=== PATIENT | female | born 1985 | race Caucasian/White ===

== ENCOUNTER 2017-04-13 13:42 | Emergency (ER) | payer BC, OTHER ==
[~2017-04-13] VITALS: Ht 157.5 cm; Wt 83.2 kg
[2017-04-13] MEDS ORDERED: TOPA100T12 PO (13:58)
[2017-04-13] MEDS ORDERED: ZOFR4TAB3 PO ×2 (13:58→16:38)
[2017-04-13] MEDS ORDERED: METF750T PO (13:58)
[2017-04-13] MEDS ORDERED: LISI2.5T3 PO (13:58)
[2017-04-13] MEDS ORDERED: LANTINJ4 SC (13:58)
[2017-04-13] MEDS ORDERED: NOVOINJ3 SC (13:58)
[2017-04-13] MEDS ORDERED: atarax (13:58)
[2017-04-13] MEDS ORDERED: LIPI10TA PO (13:58)
[2017-04-13] MEDS ORDERED: PROM50TA4 PO ×2 (13:58→16:38)
[2017-04-13] MEDS ORDERED: LOPR1TAB7 PO (13:58)
[2017-04-13] MEDS ORDERED: PROMETHAZINE INJ 25 MG/ML VIAL (J2550) IV ONE (14:00)
[2017-04-13] MEDS ORDERED: NS 1,000 ML IV ONE (14:00)
[2017-04-13 14:19] LABS: BASO % 0.5 % (0.0-1.0); EOS # 0.1 K/mm3 (0.0-0.50); EOS % 1.5 % (0.0-3.0); LARGE UNSTAINED CELL # 0.1 K/mm3 (0.0-0.4); LYMPH # 2.1 K/mm3 (1.5-4.5); MEAN CORPUSCULAR HEMOGLOBIN 30.1 pg (27.0-33.0); MEAN CORPUSCULAR HGB CONC 33.8 g/dl (32.0-36.5); MEAN CORPUSCULAR VOLUME 89.2 fl (80.0-96.0); MONO # 0.2 K/mm3 (0.0-0.8); MONO % 2.2 % (0.0-5.0); NEUTROPHILS % 69.7 % (36.0-66.0); PLATELET COUNT, AUTOMATED 418 k/mm3 (150-450); RED CELL DISTRIBUTION WIDTH 11.7 % (11.5-14.5); WHITE BLOOD COUNT 8.6 K/mm3 (4.0-10.0)
[2017-04-13 14:33] LABS: CONTROL LINE HCG INT CTR LINE PRESENT
[2017-04-13 14:41] LABS: ALBUMIN 3.9 GM/DL (3.2-5.2); ALBUMIN/GLOBULIN RATIO 0.95 (1.00-1.93); ALKALINE PHOSPHATASE 72 U/L (45-117); ALT/SGPT 33 U/L (12-78); ANION GAP 9 MEQ/L (8-16); AST/SGOT 15 U/L (15-37); BILIRUBIN,DIRECT < 0.1 MG/DL (0.0-0.2); BILIRUBIN,TOTAL 0.3 MG/DL (0.2-1.0); BLOOD UREA NITROGEN 11 MG/DL (7-18); CARBON DIOXIDE LEVEL 24 MEQ/L (21-32); CHLORIDE LEVEL 107 MEQ/L (98-107); CREATININE FOR GFR 0.94 MG/DL (0.55-1.02); GLOMERULAR FILTRATION RATE > 60.0 (>60); GLUCOSE, FASTING 173 MG/DL (70-105); POTASSIUM SERUM 4.3 MEQ/L (3.5-5.1); SODIUM LEVEL 140 MEQ/L (136-145)
--- NOTE | 2017-04-13 15:44 | REP ---
KUB ABDOMEN AND PELVIS: Two KUB films of abdomen and pelvis are performed. Bowel gas pattern is normal. There is no evidence of small bowel obstruction. Multiple phleboliths are seen in the pelvis. IMPRESSION: No evidence of small bowel obstruction. Signed by Rick Jauregui MD 04/13/2017 03:52 P
[2017-04-13 16:37] VITALS: BP 124/82
== END 2017-04-13 16:50 | disposition home or self-care (01) ==
LOC: M ED 13:42 → EDBD 13:42 → M ED 16:50
DX: R11.2 Nausea with vomiting, unspecified (principal); E11.9 Type 2 diabetes mellitus without complications; G43.909 Migraine, unspecified, not intractable, without status migrainosus; R00.0 Tachycardia, unspecified; Z79.4 Long term (current) use of insulin; Z79.899 Other long term (current) drug therapy; Z88.0 Allergy status to penicillin; Z88.5 Allergy status to narcotic agent

== ENCOUNTER → 2017-05-08 | Outpatient (REF) | payer OTHER ==
[~2017-05-08] MED LIST: LANTINJ4 SC; LIPI10TA PO; LISI2.5T3 PO; LOPR1TAB7 PO; METF750T PO; NOVOINJ3 SC; PROM50TA4 PO; TOPA100T12 PO; ZOFR4TAB3 PO; atarax
== END ==
LOC: M LAB REF 09:05
PROVIDERS: ATTEND Physician Assistant
DX: R30.0 Dysuria (principal)

== ENCOUNTER → 2017-09-04 | Outpatient (CLI) | payer OTHER | LOC: M CARPUL 09:29 | DX: R60.0 Localized edema (principal) | CPT/HCPCS: 93306 ==

== ENCOUNTER → 2017-11-06 | Outpatient (CLI) | payer OTHER | LOC: M RAD 11:09 | DX: M79.605 Pain in left leg (principal); M79.604 Pain in right leg; R22.43 Localized swelling, mass and lump, lower limb, bilateral ==

== ENCOUNTER 2017-12-19 14:41 | Outpatient (RCR) | payer OTHER | END 2018-01-18 | LOC: M PT 14:41 | DX: Z51.89 Encounter for other specified aftercare (principal); I89.0 Lymphedema, not elsewhere classified | CPT/HCPCS: 97140 ==

== ENCOUNTER 2018-01-08 18:01 | Emergency (ER) | payer OTHER ==
[2018-01-08] MEDS: KETOROLAC TROMETHAMINE 10 MG TAB PO (19:24)
== END 2018-01-08 20:16 | disposition home or self-care (01) ==
LOC: M ED 18:01
DX: M76.61 Achilles tendinitis, right leg (principal); X50.0XXA Overexertion from strenuous movement or load, initial encounter; Y92.098 Other place in other non-institutional residence as the place of occurrence of the external cause; E11.9 Type 2 diabetes mellitus without complications; E78.00 Pure hypercholesterolemia, unspecified; F41.9 Anxiety disorder, unspecified; Z88.0 Allergy status to penicillin; Z88.5 Allergy status to narcotic agent; Z79.4 Long term (current) use of insulin
CPT/HCPCS: 73590

== ENCOUNTER 2018-01-19 15:01 | Outpatient (RCR) | payer OTHER | END 2018-02-17 | LOC: M PT 15:01 | DX: Z51.89 Encounter for other specified aftercare (principal); I89.0 Lymphedema, not elsewhere classified | CPT/HCPCS: 97140 ==

== ENCOUNTER 2018-03-24 11:12 | Emergency (ER) | payer OTHER ==
[2018-03-24 12:11] LABS: BASO # 0.1 10^3/uL (0.0-0.2); BASO % 0.7 % (0.0-1.0); EOS # 0.1 10^3/uL (0.0-0.50); EOS % 1.4 % (0.0-3.0); HEMATOCRIT 40.5 % (36.0-47.0); HEMOGLOBIN 13.8 g/dl (12.0-15.5); IMMATURE GRANULOCYTE % 0.3 % (0-3.0); LYMPH # 2.7 10^3/uL (1.5-4.5); LYMPH % 31.1 % (24.0-44.0); MEAN CORPUSCULAR HEMOGLOBIN 30.5 pg (27.0-33.0); MEAN CORPUSCULAR HGB CONC 34.1 g/dl (32.0-36.5); MEAN CORPUSCULAR VOLUME 89.6 fl (80.0-96.0); MONO # 0.6 10^3/uL (0.0-0.8); MONO % 6.5 % (0.0-5.0); NEUTROPHILS # 5.2 10^3/uL (1.8-7.7); PLATELET COUNT, AUTOMATED 352 10^3/uL (150-450); RED BLOOD COUNT 4.52 10^6/uL (4.00-5.40); RED CELL DISTRIBUTION WIDTH 11.8 % (11.5-14.5); WHITE BLOOD COUNT 8.7 10^3/uL (4.0-10.0)
[2018-03-24 12:21] LABS: KETONE, URINE AUTO RFX NEGATIVE (NEGATIVE); LEUKOCYTE ESTERASE UR AUTO RFX TRACE (NEGATIVE); NITRITE, URINE AUTO RFX POSITIVE (NEGATIVE); RBC, URINE AUTO RFX 1 /HPF (0-3); SPECIFIC GRAVITY UR AUTO RFX 1.008 (1.002-1.035); SQUAM EPITHELIAL CELL UR AURFX 1 /HPF (0-6); WBC, URINE AUTO RFX 7 /HPF (0-3)
[2018-03-24 12:30] LABS: ALBUMIN 3.2 GM/DL (3.2-5.2); ALKALINE PHOSPHATASE 83 U/L (45-117); ALT/SGPT 67 U/L (12-78); ANION GAP 7 MEQ/L (8-16); AST/SGOT 31 U/L (7-37); BILIRUBIN,TOTAL 0.3 MG/DL (0.2-1.0); BLOOD UREA NITROGEN 11 MG/DL (7-18); CALCIUM LEVEL 8.6 MG/DL (8.5-10.1); CARBON DIOXIDE LEVEL 28 MEQ/L (21-32); CHLORIDE LEVEL 104 MEQ/L (98-107); CREATININE FOR GFR 0.82 MG/DL (0.55-1.30); GLOMERULAR FILTRATION RATE > 60.0 (>60); GLUCOSE, FASTING 183 MG/DL (70-100); SODIUM LEVEL 139 MEQ/L (136-145); TOTAL PROTEIN 7.2 GM/DL (6.4-8.2)
[2018-03-24] MEDS: KETOROLAC 30 MG/ML VIAL (J1885) IV (12:41)
[2018-03-24] MEDS: ONDANSETRON 4MG/2ML VIAL (J2405) IV (12:41)
[2018-03-24] MEDS: NS 1,000 ML IV (12:41)
[2018-03-24 12:50] LABS: LIPASE 62 U/L (73-393)
[2018-03-24] MEDS: METOCLOPRAMIDE 10 MG TAB PO (13:52)
[2018-03-24] MEDS: PHENAZOPYRIDINE 100 MG TAB PO (13:52)
[2018-03-24] MEDS: NITROFURANTOIN (MACROBID) 100 MG CAP PO (13:52)
== END 2018-03-24 13:55 | disposition home or self-care (01) ==
LOC: M ED 11:12
DX: N83.201 Unspecified ovarian cyst, right side (principal); N39.0 Urinary tract infection, site not specified; E10.9 Type 1 diabetes mellitus without complications; E78.00 Pure hypercholesterolemia, unspecified; F41.9 Anxiety disorder, unspecified; I89.0 Lymphedema, not elsewhere classified; I47.1 Supraventricular tachycardia; Z79.899 Other long term (current) drug therapy; Z79.4 Long term (current) use of insulin; Z88.0 Allergy status to penicillin; Z88.5 Allergy status to narcotic agent
CPT/HCPCS: J2405

== ENCOUNTER 2018-09-20 18:49 | Emergency (ER) | payer OTHER ==
[~2018-09-20] VITALS: Ht 160 cm; Wt 85.0 kg
[~2018-09-20 18:49] MED LIST changes: +KETO10TAB PO; -LISI2.5T3 PO; +LISI2.5T5 PO; +MACR100C43 PO; +NAPR-50 PO; +PYRI1TAB5 PO; +REGL10TA6 PO; +ROSU5TAB4; +ZOFR4TAB14 PO; -ZOFR4TAB3 PO
[2018-09-20] MEDS ORDERED: METO1TAB7 PO (19:03)
[2018-09-20 19:08] LABS: BASO # 0.1 10^3/uL (0.0-0.2); BASO % 0.7 % (0.0-1.0); EOS # 0.2 10^3/uL (0.0-0.50); EOS % 1.7 % (0.0-3.0); HEMATOCRIT 42.7 % (36.0-47.0); HEMOGLOBIN 14.6 g/dl (12.0-15.5); LYMPH # 3.2 10^3/uL (1.5-4.5); LYMPH % 27.9 % (24.0-44.0); MEAN CORPUSCULAR HEMOGLOBIN 30.2 pg (27.0-33.0); MEAN CORPUSCULAR HGB CONC 34.2 g/dl (32.0-36.5); MEAN CORPUSCULAR VOLUME 88.2 fl (80.0-96.0); MONO # 0.7 10^3/uL (0.0-0.8); MONO % 5.9 % (0.0-5.0); NEUTROPHILS # 7.2 10^3/uL (1.8-7.7); NEUTROPHILS % 63.4 % (36.0-66.0); PLATELET COUNT, AUTOMATED 395 10^3/uL (150-450); RED BLOOD COUNT 4.84 10^6/uL (4.00-5.40); WHITE BLOOD COUNT 11.3 10^3/uL (4.0-10.0)
[2018-09-20 19:29] LABS: INR 0.86; PROTHROMBIN TIME 11.8 SECONDS (12.1-14.4)
[2018-09-20 19:30] LABS: PARTIAL THROMBOPLASTIN TIME 24.2 SECONDS (25.4-37.6)
[2018-09-20 19:39] LABS: BLOOD UREA NITROGEN 12 MG/DL (7-18); CALCIUM LEVEL 9.4 MG/DL (8.5-10.1); CARBON DIOXIDE LEVEL 25 MEQ/L (21-32); CHLORIDE LEVEL 102 MEQ/L (98-107); CPK CREATINE PHOSPHOKINASE 80 U/L (26-192); CREATININE FOR GFR 0.88 MG/DL (0.55-1.30); GLOMERULAR FILTRATION RATE > 60.0 (>60); GLUCOSE, FASTING 222 MG/DL (70-100); MB/CK RELATIVE INDEX 1.38 (< OR =4); POTASSIUM SERUM 3.8 MEQ/L (3.5-5.1); SODIUM LEVEL 136 MEQ/L (136-145); TROPONIN I < 0.02 NG/ML (< 0.10)
[2018-09-20] MEDS ORDERED: NS 1,000 ML IV ONE (19:45)
[2018-09-20] MEDS ORDERED: ISOVUE-370 76% 100ML VIAL (Q9967) As Ordered ONE (20:03)
[2018-09-20 21:00] VITALS: BP 122/75
--- NOTE | 2018-09-20 21:02 | REPVR ---
EXAM: CT Angiography Chest With Contrast EXAM DATE/TIME: 09/20/2018 8:20 PM CLINICAL HISTORY: 32 years old, female; Pain; Chest pain; Type not specified; Additional info: Cp TECHNIQUE: Axial computed tomographic angiography images of the chest with intravenous contrast using CT angiography protocol. All CT scans at this facility use at least one of these dose optimization techniques: automated exposure control; mA and/or kV adjustment per patient size (includes targeted exams where dose is matched to clinical indication); or iterative reconstruction. Coronal and sagittal reformatted images were created and reviewed. MIP reconstructed images were created and reviewed. CONTRAST: 75 ml of isovue 370 administered intravenously. COMPARISON: CR Chest, 2 view PA, Lat 07/29/2012 7:13 PM FINDINGS: Pulmonary arteries: There is opacification of the pulmonary arteries with no evidence of pulmonary embolus. Aorta: There is opacification of the aorta which appears intact. Lungs: The lungs appear clear. Pleural space: There is no evidence of pleural effusion. There is no evidence of pneumothorax. Heart: The heart is normal in size and there is no pericardial effusion. Lymph nodes: Unremarkable. No enlarged lymph nodes. Bones/joints: Unremarkable. No acute fracture. Soft tissues: There is some thickening of the esophagus suggest correlation with an esophagram. IMPRESSION: No evidence of pulmonary embolus. Some thickening of the esophagus and suggest correlation with a esophagram. Electronically signed by: Rupert Viveros On 09/20/2018 21:02:31 PM
[2018-09-20] MEDS ORDERED: KETOROLAC 30 MG/ML VIAL (J1885) IV ONE (21:30)
--- NOTE | 2018-09-21 08:39 | ECGEPIP ---
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
--- NOTE | 2018-09-21 11:40 | ED PDOC ---
Post-Departure Follow-Up deb geiger faxed formal report of cta chest for fu Jonah Aguirre MD Sep 21, 2018 11:40
== END 2018-09-20 21:40 | disposition home or self-care (01) ==
LOC: M ED 18:49 → EDBD 18:49 → M ED 21:40
DX: R07.89 Other chest pain (principal); E10.9 Type 1 diabetes mellitus without complications; F41.9 Anxiety disorder, unspecified; I49.5 Sick sinus syndrome; Z79.4 Long term (current) use of insulin; Z88.0 Allergy status to penicillin; Z88.5 Allergy status to narcotic agent
CPT/HCPCS: 71275; 80048; 82550; 82553; 84484; 85025; 85610; 85730; 93005; 96374; 99284; J1885; Q9967

== ENCOUNTER 2019-05-24 22:17 | Emergency (ER) | payer OTHER ==
[~2019-05-24] VITALS: Ht 160 cm; Wt 83.2 kg
[~2019-05-24 22:17] MED LIST changes: +LISI-1046 PO; -LISI2.5T5 PO; -METF750T PO; +METF750T36 PO; +METO1TAB7 PO; -NAPR-50 PO; +NAPR-837 PO; -ROSU5TAB4; +ROSU5TAB5
[2019-05-24] MEDS ORDERED: JARD1TAB3 PO (22:28)
[2019-05-24] MEDS ORDERED: MULTCAP PO (22:28)
[2019-05-24] MEDS ORDERED: ZOLO100T PO (22:28)
[2019-05-24] MEDS ORDERED: NATE60TA PO (22:28)
[2019-05-24] MEDS ORDERED: METF500T13 PO (22:28)
[2019-05-24] MEDS ORDERED: ACET-840 PO (22:34)
[2019-05-25] MEDS ORDERED: NORCO, ANEXSIA 5/325MG TABLET (HYDROcodone/ACETAMINOPHEN) PO ONE
[2019-05-25 01:18] VITALS: BP 131/78
--- NOTE | 2019-05-25 08:17 | REP ---
Left wrist four views : There is no fracture or dislocation. Mineralization and joint spaces are normal. There are no calcifications or foreign bodies. Impression: Negative left wrist . Electronically Signed by Rick Dickson MD 05/25/2019 08:08 A
--- NOTE | 2019-05-25 08:17 | REP ---
Left hand four views : There is no fracture or dislocation. Mineralization and joint spaces are normal. There are no calcifications or foreign bodies. Impression: Negative left hand . Electronically Signed by Rick Dickson MD 05/25/2019 08:09 A
== END 2019-05-25 01:24 | disposition home or self-care (01) ==
LOC: M ED 22:17
DX: S63.502A Unspecified sprain of left wrist, initial encounter (principal); Z88.0 Allergy status to penicillin; Z88.5 Allergy status to narcotic agent; W18.09XA Striking against other object with subsequent fall, initial encounter; Y93.K1 Activity, walking an animal; Y92.89 Other specified places as the place of occurrence of the external cause; R51 Headache; E78.00 Pure hypercholesterolemia, unspecified; E11.9 Type 2 diabetes mellitus without complications; Z79.84 Long term (current) use of oral hypoglycemic drugs; Z79.899 Other long term (current) drug therapy

== ENCOUNTER 2019-07-11 06:19 | Day surgery (SDC) | payer OTHER ==
[2019-07-11] VITALS (7 sets, daily range): BP systolic 115–145; BP diastolic 69–87
[~2019-07-11] VITALS: Ht 160 cm; Wt 86.1 kg
[~2019-07-11 06:19] MED LIST changes: +ACET-840 PO; +BUSP5TA PO; +JARD1TAB3 PO; +LIDOCAINE 1% MDV 20ML VIAL SQ PRN; +LR 1,000 ML IV ONE; +METF500T13 PO; +MULTCAP PO; +NATE60TA PO; +ZOLO100T PO
[2019-07-11 06:38] LABS: HEMATOCRIT 45.9 % (36.0-47.0); HEMOGLOBIN 14.9 g/dl (12.0-15.5); MEAN CORPUSCULAR HEMOGLOBIN 30.3 pg (27.0-33.0); MEAN CORPUSCULAR HGB CONC 32.5 g/dl (32.0-36.5); MEAN CORPUSCULAR VOLUME 93.5 fl (80.0-96.0); PLATELET COUNT, AUTOMATED 381 10^3/uL (150-450); RED BLOOD COUNT 4.91 10^6/uL (4.00-5.40); WHITE BLOOD COUNT 9.5 10^3/uL (4.0-10.0)
[2019-07-11] MEDS ORDERED: KETOROLAC 60 MG/2 ML VIAL (J1885) As Ordered ONE (07:11)
[2019-07-11] MEDS ORDERED: PROPOFOL 200 MG/20 ML VIAL As Ordered ONE (07:11)
[2019-07-11] MEDS ORDERED: LIDOCAINE 2% INJ 100 MG/5 ML SDV (FOR ANES.) As Ordered ONE (07:11)
[2019-07-11] MEDS ORDERED: dexameTHASONE 4 MG/ML 1ML VIAL (J1100) As Ordered ONE (07:11)
[2019-07-11] MEDS ORDERED: SUGAMMADEX SODIUM 500 MG/5 ML VIAL (BRIDION) As Ordered ONE (07:11)
[2019-07-11] MEDS ORDERED: ACETAMINOPHEN 1000MG 100ML IV BTL (OFIRMEV) (J0131 PER 10MG) As Ordered ONE (07:11)
[2019-07-11] MEDS ORDERED: ONDANSETRON 4MG/2ML VIAL (J2405) As Ordered ONE (07:11)
[2019-07-11] MEDS ORDERED: fentaNYL 100 MCG/2 ML INJECTION (J3010) As Ordered ONE ×2 (07:12→09:47)
[2019-07-11] MEDS ORDERED: HYDROmorphone HCL 2 MG/ML 1ML VIAL (J1170) As Ordered ONE (07:12)
[2019-07-11] MEDS ORDERED: ROCURONIUM BROMIDE 50 MG/5 ML VIAL As Ordered ONE (07:12)
[2019-07-11] MEDS ORDERED: MIDAZOLAM INJ 2 MG/2 ML VIAL (J2250) As Ordered ONE (07:12)
[2019-07-11] MEDS ORDERED: ceFAZolin SOD 2 GM in IV 1 EA IV ONE (07:30)
[2019-07-11] MEDS ORDERED: HumaLOG INSULIN (NovoLOG) PER UNIT As Ordered ONE (09:51)
[2019-07-11] MEDS ORDERED: ONDANSETRON 4MG/2ML VIAL (J2405) IV PRN (10:00)
[2019-07-11] MEDS ORDERED: EPIDURAL/PCA KEYS XX PRN (10:00)
[2019-07-11] MEDS ORDERED: diphenhydrAMINE INJ 50MG/ML VIAL (J1200) IV PRN (10:00)
[2019-07-11] MEDS ORDERED: LR 1,000 ML IV SCH (10:00)
[2019-07-11] MEDS ORDERED: METOCLOPRAMIDE INJ 10MG/2ML VIAL (J2765) IV PRN (10:00)
[2019-07-11] MEDS ORDERED: PERCOCET 5MG/325MG TAB PO PRN (10:00)
[2019-07-11] MEDS ORDERED: MORPHINE 1MG/ML IN 0.9% NACL 100ML IV BAG IV PRN (10:00)
[2019-07-11] MEDS ORDERED: NALBUPHINE HCL 10 MG/ML AMP (J2300) IV PRN (10:00)
[2019-07-11] MEDS ORDERED: NALOXONE INJ 0.4 MG/1 ML VIAL (J2310) IV PRN (10:00)
[2019-07-11] MEDS: fentaNYL 100 MCG/2 ML INJECTION (J3010) IV PRN ×4 (10:11→10:35)
[2019-07-11] MEDS ORDERED: HumaLOG INSULIN (NovoLOG) PER UNIT SC ONE (11:00)
[2019-07-11] MEDS: LR 1,000 ML IV SCH ×2 (12:12→18:06)
[2019-07-11] MEDS: IBUPROFEN 600 MG TAB PO PRN (17:12)
[2019-07-11] MEDS: metFORMIN (GLUCOPHAGE) 500 MG TAB PO SCH (17:12)
[2019-07-11] MEDS: NATEGLINIDE 60 MG PO SCH (18:00)
[2019-07-12] VITALS: BP 113/58
[2019-07-12] MEDS: LR 1,000 ML IV SCH (00:13)
[2019-07-12] MEDS: IBUPROFEN 600 MG TAB PO PRN (00:18)
[2019-07-12 04:00] VITALS: BP 119/72
[2019-07-12] MEDS ORDERED: NORCO, ANEXSIA 5/325MG TABLET (HYDROcodone/ACETAMINOPHEN) PO PRN (06:00)
[2019-07-12 06:38] LABS: HEMATOCRIT 38.6 % (36.0-47.0); HEMOGLOBIN 12.7 g/dl (12.0-15.5); MEAN CORPUSCULAR HEMOGLOBIN 30.1 pg (27.0-33.0); MEAN CORPUSCULAR HGB CONC 32.9 g/dl (32.0-36.5); MEAN CORPUSCULAR VOLUME 91.5 fl (80.0-96.0); PLATELET COUNT, AUTOMATED 346 10^3/uL (150-450); RED BLOOD COUNT 4.22 10^6/uL (4.00-5.40)
[2019-07-12 08:00] VITALS: BP 124/69
[2019-07-12] MEDS ORDERED: NORC1TAB7 PO (08:56)
[2019-07-12] MEDS ORDERED: MOTR200T44 PO (08:56)
[2019-07-12] MEDS ORDERED: JARDIANCE 25 MG PO SCH (09:00)
[2019-07-12] MEDS: metFORMIN (GLUCOPHAGE) 500 MG TAB PO SCH (09:17)
[2019-07-12] MEDS: NATEGLINIDE 60 MG PO SCH (09:18)
--- NOTE | 2019-07-13 00:38 | RO ---
DATE OF PROCEDURE: 07/11/2019 PREOPERATIVE DIAGNOSIS: Pain, bleeding, failed ablation, some small fibroids. POSTOPERATIVE DIAGNOSIS: Pain, bleeding, failed ablation, some small fibroids. Paratubal cyst on the right side noted and removed. PROCEDURE: Total vaginal hysterectomy, right salpingectomy. SURGEON: Dr. Celeste Arana CORE JAVA SOFTWARE ENGINEER: None other than the educational technician. ANESTHESIA: General endotracheal anesthesia. DESCRIPTION OF PROCEDURE: Tea was brought to the operating room where sufficient general endotracheal anesthesia was induced, and she was prepped, draped and positioned in the usual sterile fashion. With the weighted speculum placed, the bladder emptied and the anterior and posterior aspect of the cervix grasped with a single -tooth tenaculum. A circumferential incision was made around the base of the cervix with cardinal ligaments then isolated, clamped, transected and ligated, using the Noble clamps, which were used throughout, the SuperCut scissors and the #0 Vicryl suture, which was also used throughout. The uterosacral ligaments were then clamped, transected and ligated, marked for later reattachment to the cuff, and the dissection continued anteriorly and posteriorly. It was actually a little easier to get in anteriorly for this patient, so we created the bladder flap anteriorly and then entered posteriorly and then gradually worked our way along the lateral aspect to the uterus, securing the uterine vasculature until the uterus could be delivered. Then with retention sutures on the pedicles, evaluated them. I could not get the left fallopian tube down, but the right fallopian tube had a paratubal cyst and some evidence of scarring from her previous tubal ligation, and I was able to deliver this. The right ovary was visible and normal. The left ovary I could palpate, I could not see well but I could palpate a normal ovary there. We had good hemostasis at the pedicles. We had the right tube off. We decided not to leena after the left tube based on her exam, and we had no evidence of injury to bowel or bladder. We went ahead and closed the cuff, of course re-securing the uterosacrals using #0 Vicryl suture. And after closing the cuff in a running locked stitch, two segments, taking angle stitches first, we had good approximation and hemostasis and the procedure was then ended. Estimated blood loss for the procedure: About 75 mL. Fluid replacement was crystalloid. Complications: None. She did have a Sandoval placed postoperatively with an expectation of that to come out in the morning. Condition and Disposition: Tea tolerated the procedure well and was recovering in the recovery room in good condition.
== END 2019-07-12 10:00 | disposition home or self-care (01) ==
LOC: M SDC 06:19 → M PED 12:00 → M SDC 07-12 10:00
PROVIDERS: ATTEND Obstetrics & Gynecology
DX: D26.9 Other benign neoplasm of uterus, unspecified (principal); N72 Inflammatory disease of cervix uteri; N70.11 Chronic salpingitis; R10.2 Pelvic and perineal pain; N93.9 Abnormal uterine and vaginal bleeding, unspecified; N83.8 Other noninflammatory disorders of ovary, fallopian tube and broad ligament; E10.9 Type 1 diabetes mellitus without complications; G43.909 Migraine, unspecified, not intractable, without status migrainosus; F41.9 Anxiety disorder, unspecified; F32.9 Major depressive disorder, single episode, unspecified; Z88.0 Allergy status to penicillin; Z91.040 Latex allergy status; Z91.030 Bee allergy status; Z79.899 Other long term (current) drug therapy; Z79.84 Long term (current) use of oral hypoglycemic drugs; Z87.891 Personal history of nicotine dependence
CPT/HCPCS: 36415; 58262; 82947; 85027; 86850; 86900; 86901; 88307; J0131; J0690; J1100; J1170; J1885; J2250; J2405; J2765; J3010

== ENCOUNTER 2019-07-23 08:29 | Emergency (ER) | payer OTHER ==
[~2019-07-23] VITALS: Ht 160 cm; Wt 83.2 kg
[~2019-07-23 08:29] MED LIST changes: -LIDOCAINE 1% MDV 20ML VIAL SQ PRN; -LR 1,000 ML IV ONE; +MOTR200T44 PO; +NORC1TAB7 PO
[2019-07-23] MEDS ORDERED: NS 1,000 ML IV ONE (09:15)
[2019-07-23] MEDS ORDERED: ONDANSETRON 4MG/2ML VIAL (J2405) IV ONE (09:15)
--- NOTE | 2019-07-23 10:04 | REP ---
Clinical: Chest and abdominal pain . Comparison: 07/29/2012 . Technique: PA and lateral. Findings: The mediastinum and cardiac silhouette are normal. The lung richter are clear and without acute consolidation, effusion, or pneumothorax. The skeletal structures are intact and normal. Impression: 1. No acute cardiopulmonary process. Electronically Signed by Brock Spencer MD 07/23/2019 09:56 A
[2019-07-23 10:08] LABS: BASO # 0.1 10^3/uL (0.0-0.2); BASO % 0.6 % (0.0-1.0); EOS # 0.2 10^3/uL (0.0-0.5); EOS % 1.2 % (0.0-3.0); HEMATOCRIT 45.5 % (36.0-47.0); HEMOGLOBIN 14.6 g/dl (12.0-15.5); LYMPH # 1.8 10^3/uL (1.5-5.0); LYMPH % 14.7 % (24.0-44.0); MEAN CORPUSCULAR HEMOGLOBIN 29.9 pg (27.0-33.0); MEAN CORPUSCULAR HGB CONC 32.1 g/dl (32.0-36.5); MEAN CORPUSCULAR VOLUME 93.2 fl (80.0-96.0); MONO # 0.6 10^3/uL (0.0-0.8); MONO % 4.7 % (0.0-5.0); NEUTROPHILS # 9.4 10^3/uL (1.5-8.5); NEUTROPHILS % 78.3 % (36.0-66.0); PLATELET COUNT, AUTOMATED 473 10^3/uL (150-450); RED BLOOD COUNT 4.88 10^6/uL (4.00-5.40)
[2019-07-23 10:41] LABS: ALT/SGPT 28 U/L (12-78); BILIRUBIN,DIRECT < 0.1 MG/DL (0.0-0.2); BILIRUBIN,TOTAL 0.3 MG/DL (0.2-1.0); BLOOD UREA NITROGEN 13 MG/DL (7-18); CALCIUM LEVEL 9.5 MG/DL (8.5-10.1); CARBON DIOXIDE LEVEL 26 MEQ/L (21-32); CHLORIDE LEVEL 102 MEQ/L (98-107); CK-MB VALUE MASS < 1.0 NG/ML (<3.6); CPK CREATINE PHOSPHOKINASE 52 U/L (26-192); CREATININE FOR GFR 0.88 MG/DL (0.55-1.30); GLOMERULAR FILTRATION RATE > 60.0 (>60); GLUCOSE, FASTING 219 MG/DL (70-100); LIPASE 101 U/L (73-393); MB/CK RELATIVE INDEX 1.92 (< OR =4); POTASSIUM SERUM 4.3 MEQ/L (3.5-5.1); SODIUM LEVEL 136 MEQ/L (136-145); TROPONIN I < 0.02 NG/ML (< 0.10)
--- NOTE | 2019-07-23 11:12 | REP ---
CT ABDOMEN/PELVIS WITHOUT CONTRAST: CT abdomen/pelvis is performed without oral or IV contrast. Sagittal and coronal reconstruction images are performed. Comparison made with prior study of 03/24/2018. Visualized lung bases are clear. The liver, spleen, adrenals, pancreas, and kidneys are grossly unremarkable. I see no renal, ureteral, or bladder calculus. I see no hydroureteronephrosis. There is no evidence of abdominal aortic aneurysm. No adenopathy is seen. There is no free air or significant free fluid. No definite bowel wall thickening is seen. There is no evidence of appendicitis, the appendix appears unchanged since the prior study, noninflamed. The patient has had a hysterectomy since the prior study. I suspect a follicle in the left ovary 1.8 cm in diameter. Right ovary is grossly unremarkable. Urinary bladder is not well distended and not well evaluated. IMPRESSION: No CT evidence of nephrolithiasis or calculus in the ureters or bladder. No hydronephrosis. No evidence of appendicitis. I suspect a 1.8 cm follicle in the left ovary. No significant free fluid. Electronically Signed by Rick Jauregui MD 07/23/2019 12:02 P
[2019-07-23] MEDS ORDERED: NS 500 ML IV ONE (12:15)
[2019-07-23] MEDS ORDERED: KETOROLAC 30 MG/ML VIAL (J1885) IV ONE (12:30)
[2019-07-23] MEDS ORDERED: FLUCONAZOLE 50MG TABLET PO ONE (12:30)
[2019-07-23 13:03] LABS: CHLAMYDIA DNA AMPLIFICATION NEGATIVE (NEGATIVE); GC DNA AMPLIFICATION NEGATIVE (NEGATIVE)
--- NOTE | 2019-07-23 14:24 | REP ---
Clinical: Pelvic pain. Status post hysterectomy. Technique: Transabdominal pelvic ultrasound with color Doppler evaluation. Findings: The patient is status post hysterectomy. The right ovary is normal in appearance and vascularity measuring 3.1 x 2.7 x 3.1 cm (RI 0.46). The left ovary measures 4.3 x 3.2 x 5.3 cm (RI 0.59) and includes 2.7 x 2.1 x 2.7 cm physiologic cyst / follicle. No pelvic free fluid or adnexal mass lesion. Impression: 1. Bilateral ovaries without evidence for torsion. 2.7 cm left ovarian cyst / follicle. Electronically Signed by Brock Spencer MD 07/23/2019 02:15 P
[2019-07-23] MEDS ORDERED: CIPROFLOXACIN 400 MG in IV 1 EA IV ONE (15:30)
[2019-07-23] MEDS ORDERED: PYRI1TAB5 PO (15:44)
[2019-07-23] MEDS ORDERED: CIPR-249 PO (15:55)
[2019-07-23 16:52] VITALS: BP 106/58
--- NOTE | 2019-07-23 17:08 | ECGEPIP ---
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
== END 2019-07-23 17:13 | disposition home or self-care (01) ==
LOC: M ED 08:29
DX: N39.0 Urinary tract infection, site not specified (principal); B37.3 Candidiasis of vulva and vagina; N83.292 Other ovarian cyst, left side; N99.821 Postprocedural hemorrhage of a genitourinary system organ or structure following other procedure; R00.0 Tachycardia, unspecified; R94.31 Abnormal electrocardiogram [ECG] [EKG]; E11.9 Type 2 diabetes mellitus without complications; E78.5 Hyperlipidemia, unspecified; G43.909 Migraine, unspecified, not intractable, without status migrainosus; F41.9 Anxiety disorder, unspecified; F32.9 Major depressive disorder, single episode, unspecified; Z79.899 Other long term (current) drug therapy; Z88.0 Allergy status to penicillin; Z91.040 Latex allergy status
CPT/HCPCS: 36415; 71046; 74176; 76856; 80048; 80076; 81001; 82550; 82553; 83605; 83690; 84443; 84484; 85025; 87040; 87086; 87210; 87661; 93005; 93976; 96361; 96365; 96375; 99284; J0744; J1885; J2405

== ENCOUNTER 2019-07-24 04:51 | Emergency (ER) | payer OTHER ==
[~2019-07-24] VITALS: Ht 160 cm; Wt 83.2 kg
[~2019-07-24 04:51] MED LIST changes: +CIPR-249 PO
[2019-07-24] MEDS ORDERED: MORPHINE 4 MG/ML 1ML VIAL/SYRINGE (J2270) IV PRN (05:30)
[2019-07-24] MEDS ORDERED: NS 1,000 ML IV SCH (05:30)
[2019-07-24] MEDS ORDERED: ONDANSETRON 4MG/2ML VIAL (J2405) IV ONE (05:30)
[2019-07-24 05:37] LABS: BASO # 0.1 10^3/uL (0.0-0.2); BASO % 0.7 % (0.0-1.0); EOS # 0.2 10^3/uL (0.0-0.5); EOS % 1.8 % (0.0-3.0); HEMATOCRIT 40.9 % (36.0-47.0); HEMOGLOBIN 13.3 g/dl (12.0-15.5); LYMPH % 21.8 % (24.0-44.0); MEAN CORPUSCULAR HEMOGLOBIN 30.2 pg (27.0-33.0); MEAN CORPUSCULAR HGB CONC 32.5 g/dl (32.0-36.5); MONO # 0.5 10^3/uL (0.0-0.8); MONO % 5.7 % (0.0-5.0); NEUTROPHILS # 6.5 10^3/uL (1.5-8.5); NEUTROPHILS % 69.5 % (36.0-66.0); PLATELET COUNT, AUTOMATED 433 10^3/uL (150-450); WHITE BLOOD COUNT 9.4 10^3/uL (4.0-10.0)
[2019-07-24 05:38] LABS: BLOOD UREA NITROGEN 13 MG/DL (7-18); CALCIUM LEVEL 9.1 MG/DL (8.5-10.1); CARBON DIOXIDE LEVEL 24 MEQ/L (21-32); CHLORIDE LEVEL 104 MEQ/L (98-107); CREATININE FOR GFR 0.95 MG/DL (0.55-1.30); GLOMERULAR FILTRATION RATE > 60.0 (>60); GLUCOSE, FASTING 313 MG/DL (70-100); POTASSIUM SERUM 3.8 MEQ/L (3.5-5.1); SODIUM LEVEL 137 MEQ/L (136-145)
--- NOTE | 2019-07-24 07:53 | REP ---
Clinical: Acute abdominal pain. Technique: Upright view of the chest with supine and upright views of the abdomen and pelvis. Findings: Frontal upright view of the chest demonstrates no acute cardiopulmonary process or free air below the diaphragm to suspect pneumoperitoneum. Supine and upright views of the abdomen and pelvis demonstrate nonspecific bowel gas pattern without obstruction or perforation. No organomegaly. No abnormal calcifications. Skeletal structures normal for age. Impression: Nonspecific bowel gas pattern. Electronically Signed by Brock Spencer MD 07/24/2019 07:44 A
[2019-07-24 07:54] VITALS: BP 124/71
== END 2019-07-24 07:58 | disposition home or self-care (01) ==
LOC: M ED 04:51
DX: N99.820 Postprocedural hemorrhage of a genitourinary system organ or structure following a genitourinary system procedure (principal); E11.9 Type 2 diabetes mellitus without complications; Z79.84 Long term (current) use of oral hypoglycemic drugs; Z79.899 Other long term (current) drug therapy; Z88.0 Allergy status to penicillin; Z91.040 Latex allergy status
CPT/HCPCS: 74021; 80048; 85025; 86850; 86900; 86901; 96361; 96374; 96375; 99284; J2270; J2405

== ENCOUNTER → 2019-08-05 | Outpatient (REF) | payer OTHER ==
[2019-08-05 18:27] LABS: APPEARANCE, URINE HAZY (CLEAR); BACTERIA, URINE AUTO NEGATIVE (NEGATIVE); BILIRUBIN, URINE AUTO NEGATIVE (NEGATIVE); BLOOD, URINE BLOOD 3+ (NEGATIVE); COLOR, URINE STRAW (YELLOW); GLUCOSE, URINE (UA) AUTO 3+ mg/dL (NEGATIVE); KETONE, URINE AUTO NEGATIVE (NEGATIVE); LEUKOCYTE ESTERASE, URINE AUTO TRACE (NEGATIVE); NITRITE, URINE AUTO NEGATIVE (NEGATIVE); PROTEIN, URINE AUTO NEGATIVE (NEGATIVE); RBC, URINE AUTO 84 /HPF (0-3); SPECIFIC GRAVITY URINE AUTO 1.025 (1.002-1.035); SQUAMOUS EPITHELIAL CELL UR AU 1 /HPF (0-6); UROBILINOGEN, URINE AUTO 0.2 mg/dL (0.0-2.0); WBC, URINE AUTO 11 /HPF (0-3)
== END ==
LOC: M LAB REF 17:27
PROVIDERS: ATTEND Obstetrics & Gynecology
DX: N39.0 Urinary tract infection, site not specified (principal)

== ENCOUNTER 2020-01-14 13:54 | Emergency (ER) | payer OTHER ==
[~2020-01-14] VITALS: Ht 160 cm; Wt 89.9 kg
[~2020-01-14 13:54] MED LIST changes: -LISI-1046 PO; +LISI2.5T2 PO
[2020-01-14] MEDS ORDERED: PROM50TA4 PO (14:02)
[2020-01-14] MEDS ORDERED: VICT18IN2 (14:02)
[2020-01-14] MEDS ORDERED: ZOFR4TAB16 PO (14:02)
[2020-01-14 14:49] LABS: BASO # 0.1 10^3/uL (0.0-0.2); BASO % 0.5 % (0.0-1.0); EOS # 0.1 10^3/uL (0.0-0.5); EOS % 0.4 % (0.0-3.0); HEMATOCRIT 45.7 % (36.0-47.0); HEMOGLOBIN 15.7 g/dl (12.0-15.5); LYMPH # 2.5 10^3/uL (1.5-5.0); LYMPH % 20.7 % (24.0-44.0); MEAN CORPUSCULAR HGB CONC 34.4 g/dl (32.0-36.5); MEAN CORPUSCULAR VOLUME 87.2 fl (80.0-96.0); MONO # 0.6 10^3/uL (0.0-0.8); MONO % 4.7 % (0.0-5.0); NEUTROPHILS # 8.8 10^3/uL (1.5-8.5); PLATELET COUNT, AUTOMATED 429 10^3/uL (150-450); RED BLOOD COUNT 5.24 10^6/uL (4.00-5.40); WHITE BLOOD COUNT 12.1 10^3/uL (4.0-10.0)
[2020-01-14 15:07] LABS: ALBUMIN 4.2 GM/DL (3.2-5.2); ALT/SGPT 27 U/L (12-78); BILIRUBIN,DIRECT 0.1 MG/DL (0.0-0.2); BILIRUBIN,TOTAL 0.5 MG/DL (0.2-1.0); BLOOD UREA NITROGEN 21 MG/DL (7-18); CALCIUM LEVEL 9.2 MG/DL (8.5-10.1); CARBON DIOXIDE LEVEL 19 MEQ/L (21-32); CHLORIDE LEVEL 103 MEQ/L (98-107); CREATININE FOR GFR 1.06 MG/DL (0.55-1.30); GLOMERULAR FILTRATION RATE > 60.0 (>60); GLUCOSE, FASTING 238 MG/DL (70-100); LIPASE 154 U/L (73-393); POTASSIUM SERUM 4.2 MEQ/L (3.5-5.1); SODIUM LEVEL 134 MEQ/L (136-145); TOTAL PROTEIN 8.5 GM/DL (6.4-8.2)
[2020-01-14] MEDS ORDERED: NS 1,000 ML IV ONE (16:30)
[2020-01-14] MEDS ORDERED: METOCLOPRAMIDE INJ 10MG/2ML VIAL (J2765 PER 1) IV ONE (16:30)
[2020-01-14 17:13] LABS: ACETONE/KETONE 29.05 MG/DL (<2.81)
[2020-01-14] MEDS ORDERED: ISOVUE-370 76% 100ML VIAL As Ordered ONE (17:29)
--- NOTE | 2020-01-14 17:55 | REPVR ---
PROCEDURE INFORMATION: Exam: CT Abdomen And Pelvis With Contrast Exam date and time: 01/14/2020 5:34 PM Age: 34 years old Clinical indication: Abdominal pain; Additional info: Vomiting TECHNIQUE: Imaging protocol: Computed tomography of the abdomen and pelvis with intravenous contrast. Radiation optimization: All CT scans at this facility use at least one of these dose optimization techniques: automated exposure control; mA and/or kV adjustment per patient size (includes targeted exams where dose is matched to clinical indication); or iterative reconstruction. Contrast material: ISO 370; Contrast volume: 100 ml; Contrast route: IV; COMPARISON: CT ABD PELVIS W/O CONTRAST 07/23/2019 10:25 AM FINDINGS: Lungs: No suspicious mass or airspace process in the visualized lung bases. Liver: Liver is decreased in density, consistent with fatty infiltration. Gallbladder and bile ducts: Gallbladder is present and shows no evidence of gallstone. Pancreas: Pancreas appears normal. No focal mass or peripancreatic inflammation. Spleen: Spleen appears homogeneous without focal mass. Adrenals: Adrenal glands are normal in appearance. Kidneys and ureters: Kidneys appear normal, with no stone, solid mass or hydronephrosis. Stomach and bowel: No evidence of small bowel obstruction. Terminal ileum has normal appearance. No evidence of acute diverticulitis. Gastric antrum appearance suggests circumferential mural edema, axial image [id number], suggesting possible gastritis Appendix: Normal caliber appendix is identified, with no adjacent inflammation. Intraperitoneal space: No pneumoperitoneum. Vasculature: No aortic aneurysm. Main portal and splenic veins enhance normally. Lymph nodes: . No enlarged lymph nodes. Bladder: Urinary bladder appears normal. Reproductive: Uterus is surgically absent. Probable involuting 18 mm right ovarian cyst. Bones/joints: Bony structures show no acute fracture or destructive process. Soft tissues: Fat containing umbilical hernia is present. IMPRESSION: Suggestion of circumferential gastric antral mural edema which can be seen with peptic ulcer disease and gastritis. No evidence of focal ulcer. Electronically signed by: Harrison Muniz On 01/14/2020 17:55:01 PM
[2020-01-14] MEDS ORDERED: PANTOPRAZOLE 40MG VIAL (C9113 PER 1) IV ONE (19:00)
[2020-01-14 20:23] LABS: HEMOGLOBIN A1c 7.8 %
[2020-01-14] MEDS ORDERED: PANT-23 PO (20:40)
[2020-01-14] MEDS ORDERED: REGL5TAB2 PO (20:40)
[2020-01-14 20:54] VITALS: BP 121/69
--- NOTE | 2020-01-17 11:35 | ED PDOC ---
Post-Departure Follow-Up ft sonia geiger faxed formal report of ct abd/p for fu Jonah Aguirre MD January 17, 2020 11:35
== END 2020-01-14 20:57 | disposition home or self-care (01) ==
LOC: M ED 13:54
DX: K29.70 Gastritis, unspecified, without bleeding (principal); E11.65 Type 2 diabetes mellitus with hyperglycemia; F33.9 Major depressive disorder, recurrent, unspecified; F41.9 Anxiety disorder, unspecified; E78.5 Hyperlipidemia, unspecified; Z79.899 Other long term (current) drug therapy; Z79.84 Long term (current) use of oral hypoglycemic drugs; Z88.0 Allergy status to penicillin
CPT/HCPCS: 74177; 80048; 80076; 81001; 82010; 83036; 83605; 83690; 83930; 85025; 87040; 87086; 96361; 96374; 96375; 99284; C9113; J2765; Q9967

== ENCOUNTER 2020-04-16 17:27 | Emergency (ER) | payer OTHER ==
[~2020-04-16] VITALS: Ht 160 cm; Wt 93.5 kg
[~2020-04-16 17:27] MED LIST changes: +PANT-23 PO; +REGL5TAB2 PO; +VICT18IN2; +ZOFR4TAB16 PO
[2020-04-16] MEDS ORDERED: FLUO20CA22 PO (17:48)
[2020-04-16] MEDS ORDERED: ACET1TAB55 PO (17:48)
[2020-04-16] MEDS ORDERED: JARD1TAB3 PO (17:48)
[2020-04-16] MEDS ORDERED: NATE120T4 PO (17:48)
[2020-04-16] MEDS ORDERED: NS 1,000 ML IV ONE (19:15)
[2020-04-16] MEDS ORDERED: METOCLOPRAMIDE INJ 10MG/2ML VIAL (J2765 PER 1) IV ONE (19:30)
[2020-04-16] MEDS ORDERED: dexameTHASONE 4 MG/ML 1ML VIAL (J1100 PER 1MG) IV ONE (19:30)
[2020-04-16] MEDS ORDERED: KETOROLAC 30 MG/ML 1ML VIAL IM ONE (19:30)
--- NOTE | 2020-04-16 19:40 | REPVR ---
PROCEDURE INFORMATION: Exam: CT Head Without Contrast Exam date and time: 04/16/2020 7:14 PM Age: 34 years old Clinical indication: Pain; Headache; Additional info: L sided headache with loss of vision to left eye TECHNIQUE: Imaging protocol: Computed tomography of the head without contrast. Axial and coronal reformatted images were created and reviewed. Radiation optimization: All CT scans at this facility use at least one of these dose optimization techniques: automated exposure control; mA and/or kV adjustment per patient size (includes targeted exams where dose is matched to clinical indication); or iterative reconstruction. COMPARISON: No relevant prior studies available. FINDINGS: Brain: No CT evidence of acute intracranial hemorrhage or acute territorial infarction. No significant mass effect or midline shift. Basal cisterns patent. Ventricles: Normal in size and configuration. Bones/joints: No acute osseous abnormality. Sinuses: Grossly unremarkable. Mastoid air cells: Grossly unremarkable. Soft tissues: Grossly unremarkable. IMPRESSION: No CT evidence of acute intracranial pathology. Electronically signed by: Abiodun Chapman On 04/16/2020 19:40:00 PM
[2020-04-16 19:48] LABS: BASO # 0.1 10^3/uL (0.0-0.2); BASO % 1.2 % (0.0-1.0); EOS # 0.3 10^3/uL (0.0-0.5); EOS % 3.3 % (0.0-3.0); HEMATOCRIT 46.1 % (36.0-47.0); LYMPH # 3.3 10^3/uL (1.5-5.0); LYMPH % 42.4 % (24.0-44.0); MEAN CORPUSCULAR HEMOGLOBIN 29.2 pg (27.0-33.0); MEAN CORPUSCULAR HGB CONC 32.5 g/dl (32.0-36.5); MEAN CORPUSCULAR VOLUME 89.9 fl (80.0-96.0); MONO # 0.6 10^3/uL (0.0-0.8); MONO % 7.7 % (0.0-5.0); NEUTROPHILS # 3.5 10^3/uL (1.5-8.5); NEUTROPHILS % 45.1 % (36.0-66.0); PLATELET COUNT, AUTOMATED 371 10^3/uL (150-450); RED BLOOD COUNT 5.13 10^6/uL (4.00-5.40); WHITE BLOOD COUNT 7.7 10^3/uL (4.0-10.0)
[2020-04-16] MEDS ORDERED: KETOROLAC 30 MG/ML 1ML VIAL IV ONE (20:00)
[2020-04-16] MEDS ORDERED: TETRACAINE 0.5% OPHTH SOLN 4ML OS ONE (20:15)
[2020-04-16 20:20] LABS: BLOOD UREA NITROGEN 15 MG/DL (7-18); CALCIUM LEVEL 9.4 MG/DL (8.5-10.1); CARBON DIOXIDE LEVEL 29 MEQ/L (21-32); CHLORIDE LEVEL 106 MEQ/L (98-107); CREATININE FOR GFR 0.97 MG/DL (0.55-1.30); GLOMERULAR FILTRATION RATE > 60.0 (>60); GLUCOSE, FASTING 105 MG/DL (70-100); MAGNESIUM LEVEL 2.3 MG/DL (1.8-2.4); POTASSIUM SERUM 3.6 MEQ/L (3.5-5.1); SODIUM LEVEL 139 MEQ/L (136-145)
[2020-04-16 21:12] VITALS: BP 132/78
== END 2020-04-16 21:07 | disposition left against medical advice (07) ==
LOC: M ED 17:27
DX: H53.132 Sudden visual loss, left eye (principal); Z53.21 Procedure and treatment not carried out due to patient leaving prior to being seen by health care provider; E11.9 Type 2 diabetes mellitus without complications
CPT/HCPCS: 36415; 70450; 80048; 83735; 85025; 96361; 96374; 96375; 99284; J1100; J1885; J2765

== ENCOUNTER → 2020-05-26 | Outpatient (REF) | payer OTHER ==
[~2020-05-26] MED LIST changes: +ACET1TAB55 PO; +FLUO20CA22 PO; +NATE120T4 PO
[2020-05-26 15:29] LABS: CREATININE, URINE 39.6 MG/DL; MALB URINE SIEMENS < 5.0 MG/L; MAU/CREAT RATIO 12.6 MCG/MG (0.0-30.0)
== END ==
LOC: M LAB REF 12:50
PROVIDERS: ATTEND Nurse Practitioner Family
DX: E10.65 Type 1 diabetes mellitus with hyperglycemia (principal)

== ENCOUNTER → 2020-07-28 | Outpatient (CLI) | payer OTHER | LOC: M LABSMTC 07:26 | PROVIDERS: ATTEND Pediatrics | DX: Z11.59 Encounter for screening for other viral diseases (principal) ==

== ENCOUNTER 2020-12-07 21:36 | Emergency (ER) | payer OTHER ==
[~2020-12-07] VITALS: Ht 160 cm; Wt 91.6 kg
[2020-12-07] MEDS ORDERED: GLYB2.5T7 (21:45)
[2020-12-07 22:03] LABS: BASO # 0.1 10^3/uL (0.0-0.2); BASO % 0.8 % (0.0-1.0); EOS # 0.2 10^3/uL (0.0-0.5); EOS % 1.5 % (0.0-3.0); HEMATOCRIT 44.1 % (36.0-47.0); HEMOGLOBIN 14.9 g/dl (12.0-15.5); LYMPH % 34.2 % (24.0-44.0); MEAN CORPUSCULAR HEMOGLOBIN 29.7 pg (27.0-33.0); MEAN CORPUSCULAR HGB CONC 33.8 g/dl (32.0-36.5); MEAN CORPUSCULAR VOLUME 87.8 fl (80.0-96.0); MONO # 0.8 10^3/uL (0.0-0.8); MONO % 6.4 % (2.0-8.0); NEUTROPHILS # 6.7 10^3/uL (1.5-8.5); NEUTROPHILS % 56.8 % (36.0-66.0); PLATELET COUNT, AUTOMATED 374 10^3/uL (150-450); RED BLOOD COUNT 5.02 10^6/uL (4.00-5.40); WHITE BLOOD COUNT 11.8 10^3/uL (4.0-10.0)
[2020-12-07] MEDS ORDERED: ONDANSETRON 4MG/2ML VIAL IV ONE (22:25)
[2020-12-07] MEDS ORDERED: MORPHINE 4 MG/ML 1ML VIAL/SYRINGE (J2270) IV ONE (22:25)
[2020-12-07 22:29] LABS: ALT/SGPT 32 U/L (12-78); BILIRUBIN,DIRECT < 0.1 MG/DL (0.0-0.2); BILIRUBIN,TOTAL 0.3 MG/DL (0.2-1.0); BLOOD UREA NITROGEN 17 MG/DL (7-18); CALCIUM LEVEL 9.8 MG/DL (8.5-10.1); CARBON DIOXIDE LEVEL 24 MEQ/L (21-32); CHLORIDE LEVEL 98 MEQ/L (98-107); CREATININE FOR GFR 0.99 MG/DL (0.55-1.30); GLOMERULAR FILTRATION RATE > 60.0 (>60); GLUCOSE, FASTING 492 MG/DL (70-100); LIPASE 157 U/L (73-393); POTASSIUM SERUM 4.1 MEQ/L (3.5-5.1); SODIUM LEVEL 132 MEQ/L (136-145); TOTAL PROTEIN 7.7 GM/DL (6.4-8.2)
[2020-12-07] MEDS ORDERED: HumuLIN R (REGULAR) INSULIN (NovoLIN R) **100U/ML** PER UNIT IV ONE (22:45)
[2020-12-07] MEDS ORDERED: NS 1,000 ML IV ONE (22:45)
[2020-12-07 23:07] LABS: ACETONE/KETONE 2.06 MG/DL (<2.81)
--- NOTE | 2020-12-08 00:19 | REPVR ---
PROCEDURE INFORMATION: Exam: US Abdomen, Limited; Right Upper Quadrant Exam date and time: 12/07/2020 11:15 PM Age: 35 years old Clinical indication: Abdominal pain; Acute; Additional info: Ruq pain, postprandial TECHNIQUE: Imaging protocol: US abdomen. Real time ultrasound with image documentation. Limited exam focused on the right upper quadrant. COMPARISON: CT ABD/PEL W/IV CONTRAST ONLY 01/14/2020 5:31 PM FINDINGS: Liver: The echogenicity of the liver is increased, which is compatible with fatty liver infiltration. Fatty infiltration of the liver can also be seen in the prior CT abdomen and pelvis on 01/14/2020. There is focal fatty sparing adjacent to the gallbladder fossa. No liver lesion is identified from the images obtained. The contour of the liver is smooth. Gallbladder: No stones, masses, gallbladder wall thickening, or pericholecystic fluid are noted. The patient was tender over the gallbladder. Common bile duct: The common bile duct is normal in caliber and at the level of the rosita hepatis measures 5 mm. Pancreas: The imaged portion of the pancreas is unremarkable. Right kidney: The right kidney is normal in appearance and measures 11 cm in length. There is no renal cortical thinning. The renal cortical echogenicity is within normal limits. No renal lesion is seen. There is no hydronephrosis. No obvious stones are seen in the renal collecting system. Intraperitoneal space: No free fluid is seen from the images obtained. IMPRESSION: 1. No acute sonographic findings in the right upper quadrant of the abdomen. 2. Fatty liver, which can also be seen in the CT abdomen and pelvis on 01/14/2020. Electronically signed by: Warren Ventura On 12/08/2020 00:19:45 AM
[2020-12-08 00:23] LABS: VENOUS BASE EXCESS -2.1 (-2.0-2.0); VENOUS HCO3 24.1 MEQ/L (23.0-27.0); VENOUS O2 SATURATION 73.6 % (60.0-80.0); VENOUS PARTIAL PRESSURE CO2 46.7 mmHg (38.0-50.0); VENOUS PARTIAL PRESSURE O2 40.6 mmHg (30.0-50.0); VENOUS PH 7.331 UNITS (7.330-7.430); VENOUS STANDARD HCO3 22.2 MEQ/L; VENOUS TOTAL CO2 25.6 MEQ/L (24.0-28.0)
[2020-12-08] MEDS ORDERED: ONDA4TAB6 PO (01:26)
[2020-12-08 01:30] VITALS: BP 119/74
== END 2020-12-08 01:53 | disposition home or self-care (01) ==
LOC: M ED 21:36
DX: E11.65 Type 2 diabetes mellitus with hyperglycemia (principal); R10.11 Right upper quadrant pain; R11.2 Nausea with vomiting, unspecified; E78.5 Hyperlipidemia, unspecified; K76.0 Fatty (change of) liver, not elsewhere classified; Z79.84 Long term (current) use of oral hypoglycemic drugs; Z79.899 Other long term (current) drug therapy; Z88.2 Allergy status to sulfonamides; Z91.040 Latex allergy status
CPT/HCPCS: 36415; 76705; 80048; 80076; 81001; 82010; 82803; 83690; 85025; 96361; 96374; 96375; 99284; J2270; J2405

== ENCOUNTER 2021-04-09 09:33 | Day surgery (SDC) | payer OTHER ==
[~2021-04-09] VITALS: Ht 160 cm; Wt 84.4 kg
[~2021-04-09 09:33] MED LIST changes: +BUPR15TA PO; +ESZO1TAB8 PO; +GLYB2.5T7; +JANU50TA25 PO; -LISI2.5T2 PO; +LISI2.5T9 PO; +LUNE2TAB23 PO; +NS 1,000 ML IV ONE; +ONDA4TAB6 PO; +VITA200044 PO
[2021-04-09] MEDS ORDERED: fentaNYL 100 MCG/2 ML INJECTION (J3010) As Ordered ONE (10:59)
[2021-04-09] MEDS ORDERED: LIDOCAINE 2% 100MG/5ML SDV (FOR ANES.) As Ordered ONE (10:59)
[2021-04-09] MEDS ORDERED: propofoL 500 MG/50 ML VIAL As Ordered ONE (10:59)
--- NOTE | 2021-04-09 11:03 | ROOR ---
Patient Name: Tea Khoury Procedure Date: 04/09/2021 10:43 AM Date of : 1985 Age: 35 Room: [facility] Gender: Female Note Status: Finalized Procedure: Upper Endoscopy + Biopsies Indications: Epigastric abdominal pain, Nausea with vomiting Providers: Momo Wilcox MD Referring MD: ADA CABALLERO MD Requesting Provider: Medicines: Monitored Anesthesia Care Complications: No immediate complications. Procedure: Pre-Anesthesia Assessment: - The heart rate, respiratory rate, oxygen saturations, blood pressure, adequacy of pulmonary ventilation, and response to care were monitored throughout the procedure. The Endoscope was introduced through the mouth, and advanced to the second part of duodenum. The upper GI endoscopy was accomplished without difficulty. The patient tolerated the procedure well. Findings: The Z-line was regular and was found 35 cm from the incisors. No other significant abnormalities were identified in a careful examination of the stomach. Biopsies were taken with a cold forceps in the gastric antrum for Helicobacter pylori testing. The exam of the duodenum was otherwise normal. Impression: - Z-line regular, 35 cm from the incisors. - Biopsies were taken with a cold forceps for Helicobacter pylori testing. - The examination was otherwise normal. Recommendation: - Patient has a contact number available for emergencies. The signs and symptoms of potential delayed complications were discussed with the patient. Return to normal activities tomorrow. Written discharge instructions were provided to the patient. - High fiber diet. - Discharge patient to home. - Follow an antireflux regimen. - Continue present medications. - Await pathology results. - Telephone GI clinic for pathology results in 1 week. - Return to referring physician. - The findings and recommendations were discussed with the patient's family. Procedure Code(s): --- Professional --- 66173, Esophagogastroduodenoscopy, flexible, transoral; with biopsy, single or multiple Diagnosis Code(s): --- Professional --- R10.13, Epigastric pain R11.2, Nausea with vomiting, unspecified CPT copyright 2019 [employer]. All rights reserved. The codes documented in this report are preliminary and upon call center trainer review may be revised to meet current compliance requirements. Momo Wilcox MD Momo Wilcox MD 04/09/2021 11:03:21 AM Electronically signed by Momo Wilcox MD Number of Addenda: 0 Note Initiated On: 04/09/2021 10:43 AM Estimated Blood Loss: Estimated blood loss: none.
[2021-04-09 11:30] VITALS: BP 111/72
== END 2021-04-09 11:35 | disposition home or self-care (01) ==
LOC: M OPP 09:33
PROVIDERS: ATTEND Internal Medicine Gastroenterology
DX: R10.13 Epigastric pain (principal); R11.2 Nausea with vomiting, unspecified; D13.1 Benign neoplasm of stomach; E11.9 Type 2 diabetes mellitus without complications; F41.9 Anxiety disorder, unspecified; F32.9 Major depressive disorder, single episode, unspecified; Z88.0 Allergy status to penicillin; Z91.040 Latex allergy status; Z79.4 Long term (current) use of insulin; Z79.899 Other long term (current) drug therapy
CPT/HCPCS: 43239; 88305; J3010

== ENCOUNTER 2022-02-01 16:22 | Emergency (ER) | payer OTHER ==
[~2022-02-01] VITALS: Ht 160 cm; Wt 83.2 kg
[~2022-02-01 16:22] MED LIST changes: -NS 1,000 ML IV ONE
[2022-02-01] MEDS ORDERED: LITH300C PO (16:33)
[2022-02-01] MEDS ORDERED: NOVOINJ3 SC (16:33)
[2022-02-01] MEDS ORDERED: ACETAMINOPHEN 325 MG TAB PO ONE (17:35)
[2022-02-01] MEDS ORDERED: HYDR-3713 PO (19:10)
[2022-02-01 19:17] VITALS: BP 143/95
== END 2022-02-01 19:41 | disposition home or self-care (01) ==
LOC: M ED 16:22
DX: S92.121A Displaced fracture of body of right talus, initial encounter for closed fracture (principal); S82.831A Other fracture of upper and lower end of right fibula, initial encounter for closed fracture; W19.XXXA Unspecified fall, initial encounter; E11.9 Type 2 diabetes mellitus without complications; K21.9 Gastro-esophageal reflux disease without esophagitis; Z79.4 Long term (current) use of insulin; Z79.84 Long term (current) use of oral hypoglycemic drugs; Z79.899 Other long term (current) drug therapy; Z88.0 Allergy status to penicillin; Z91.040 Latex allergy status

== ENCOUNTER → 2022-02-28 | Outpatient (CLI) | payer OTHER ==
[~2022-02-28] MED LIST changes: +HYDR-3713 PO; +LITH300C PO
== END ==
LOC: M SOG 11:06
PROVIDERS: ATTEND Orthopaedic Surgery Hand Surgery
DX: S92.151A Displaced avulsion fracture (chip fracture) of right talus, initial encounter for closed fracture (principal); Y99.8 Other external cause status; X58.XXXA Exposure to other specified factors, initial encounter; Y92.89 Other specified places as the place of occurrence of the external cause; Y93.89 Activity, other specified

== ENCOUNTER → 2022-04-11 | Outpatient (CLI) | payer OTHER | LOC: M SOG 09:15 | PROVIDERS: ATTEND Physician Assistant | DX: S92.151D Displaced avulsion fracture (chip fracture) of right talus, subsequent encounter for fracture with routine healing (principal); M79.89 Other specified soft tissue disorders ==

== ENCOUNTER → 2022-04-20 | Outpatient (RCR) | payer OTHER | LOC: M PT 03-25 14:23 | PROVIDERS: ATTEND Orthopaedic Surgery Hand Surgery | DX: S92.151D Displaced avulsion fracture (chip fracture) of right talus, subsequent encounter for fracture with routine healing (principal) | CPT/HCPCS: 97110; 97140; 97162; G0283 ==

== ENCOUNTER → 2022-04-30 | Outpatient (CLI) | payer OTHER | LOC: M RAD 11:26 | PROVIDERS: ATTEND Orthopaedic Surgery Hand Surgery | DX: S92.151D Displaced avulsion fracture (chip fracture) of right talus, subsequent encounter for fracture with routine healing (principal) ==

== ENCOUNTER 2022-05-03 15:45 | Outpatient (RCR) | payer OTHER | END 2022-05-20 | LOC: M PT 15:45 | PROVIDERS: ATTEND Orthopaedic Surgery Hand Surgery | DX: S92.151D Displaced avulsion fracture (chip fracture) of right talus, subsequent encounter for fracture with routine healing (principal) | CPT/HCPCS: 97110; G0283 ==

== ENCOUNTER → 2022-05-18 | Outpatient (REF) | payer OTHER ==
[2022-05-18 18:15] LABS: CREATININE, URINE 58.9 MG/DL; MALB URINE SIEMENS 5.3 MG/L; MAU/CREAT RATIO 8.9 MCG/MG (0.0-30.0)
== END ==
LOC: M LAB REF 16:54
PROVIDERS: ATTEND Nurse Practitioner Family
DX: E11.65 Type 2 diabetes mellitus with hyperglycemia (principal)

== ENCOUNTER 2022-09-13 16:45 | Emergency (ER) | payer OTHER ==
[~2022-09-13] VITALS: Ht 165.1 cm; Wt 85.0 kg
[2022-09-13 16:47] VITALS: BP 144/77
[2022-09-13] MEDS ORDERED: B-2100TA (17:40)
[2022-09-13] MEDS ORDERED: JANU50TA8 PO (17:40)
[2022-09-13] MEDS ORDERED: TOPI25TA10 (17:40)
[2022-09-13 18:32] LABS: BASO # 0.1 10^3/uL (0.0-0.2); BASO % 0.7 % (0.0-1.0); EOS # 0.2 10^3/uL (0.0-0.5); HEMOGLOBIN 14.3 g/dl (12.0-15.5); LYMPH # 4.7 10^3/uL (1.5-5.0); MEAN CORPUSCULAR HGB CONC 33.3 g/dl (32.0-36.5); MEAN CORPUSCULAR VOLUME 90.1 fl (80.0-96.0); MONO # 0.6 10^3/uL (0.0-0.8); NEUTROPHILS # 4.4 10^3/uL (1.5-8.5); PLATELET COUNT, AUTOMATED 464 10^3/uL (150-450); RED BLOOD COUNT 4.77 10^6/uL (4.00-5.40); WHITE BLOOD COUNT 10.1 10^3/uL (4.0-10.0)
[2022-09-13 18:53] LABS: BLOOD UREA NITROGEN 12 MG/DL (9-23); CARBON DIOXIDE LEVEL 24 MMOL/L (20-31); CHLORIDE LEVEL 103 MMOL/L (98-107); CK-MB VALUE MASS < 1.0 NG/ML (<3.6); CREATININE FOR GFR 0.75 MG/DL (0.55-1.30); GLOMERULAR FILTRATION RATE > 60.0 (>60); GLUCOSE, FASTING 101 MG/DL (60-100); POTASSIUM SERUM 3.4 MMOL/L (3.5-5.1); SODIUM LEVEL 138 MMOL/L (136-145)
[2022-09-13 18:58] LABS: CPK CREATINE PHOSPHOKINASE 80 U/L (34-145); MB/CK RELATIVE INDEX 1.25 (< OR =4)
[2022-09-13 19:56] LABS: INR 0.8; PROTHROMBIN TIME 11.3 SECONDS (12.5-14.5)
[2022-09-13 19:57] LABS: PARTIAL THROMBOPLASTIN TIME 22.8 SECONDS (24.8-34.2)
[2022-09-13 19:59] LABS: D-DIMER QUANT 617.57 ng/ml (<500)
[2022-09-13] MEDS ORDERED: ISOVUE-370 76% 100ML VIAL As Ordered ONE (20:16)
[2022-09-13 20:38] LABS: VENOUS BASE EXCESS -4.5 (-2.0-2.0); VENOUS HCO3 21.1 MEQ/L (23.0-27.0); VENOUS O2 SATURATION 80.8 % (60.0-80.0); VENOUS PARTIAL PRESSURE O2 44.8 mmHg (30.0-50.0); VENOUS STANDARD HCO3 20.4 MEQ/L; VENOUS TOTAL CO2 22.4 MEQ/L (24.0-28.0)
[2022-09-13 21:06] LABS: LIPASE 31 U/L (12-53)
[2022-09-13 21:08] LABS: ALBUMIN 3.1 G/DL (3.2-5.2); ALKALINE PHOSPHATASE 65 U/L (46-116); ALT/SGPT 16 U/L (7.0-40); AST/SGOT 11 U/L (<34); BILIRUBIN,DIRECT < 0.1 MG/DL (<0.4); BILIRUBIN,TOTAL 0.2 MG/DL (0.3-1.2); TOTAL PROTEIN 5.9 G/DL (5.7-8.2)
[2022-09-13 21:47] LABS: HEMOGLOBIN A1c 11.5 % (4.0-6.0)
[2022-09-13] MEDS ORDERED: LASI40TA9 PO (21:59)
[2022-09-13] MEDS ORDERED: FUROSEMIDE 40MG/4ML VIAL IV ONE (22:00)
[2022-09-13] MEDS ORDERED: POTASSIUM CHLORIDE 10MEQ SR TABLET PO ONE (22:00)
== END 2022-09-13 22:21 | disposition home or self-care (01) ==
LOC: M ED 16:45
DX: R06.00 Dyspnea, unspecified (principal); R22.43 Localized swelling, mass and lump, lower limb, bilateral; E87.6 Hypokalemia; E11.9 Type 2 diabetes mellitus without complications; Z88.0 Allergy status to penicillin; Z91.040 Latex allergy status; Z79.899 Other long term (current) drug therapy; Z79.4 Long term (current) use of insulin; Z79.811 Long term (current) use of aromatase inhibitors
CPT/HCPCS: 71046; 71275; 80047; 80048; 80076; 82550; 82553; 82803; 83036; 83690; 83880; 84484; 85025; 85379; 85610; 85730; 93005; 93970; 96374; 99284; J1940

== ENCOUNTER → 2022-09-22 | Outpatient (CLI) | payer OTHER ==
[~2022-09-22] MED LIST changes: +B-2100TA; +JANU50TA8 PO; +LASI40TA9 PO; +TOPI25TA10
== END ==
LOC: M CARPUL 13:27
PROVIDERS: ATTEND Student in an Organized Health Care Education/Training Program
DX: E11.65 Type 2 diabetes mellitus with hyperglycemia (principal); Z79.4 Long term (current) use of insulin; R06.02 Shortness of breath

== ENCOUNTER → 2023-04-11 | Outpatient (REF) | payer OTHER | LOC: M WUC 19:45 | PROVIDERS: ATTEND Physician Assistant | DX: R30.0 Dysuria (principal) ==

== ENCOUNTER 2023-06-24 10:04 | Emergency (ER) | payer OTHER ==
[~2023-06-24] VITALS: Ht 160 cm; Wt 83.6 kg
[~2023-06-24 10:04] MED LIST changes: -LUNE2TAB23 PO; +LUNE2TAB28 PO
[2023-06-24] MEDS ORDERED: TORS10TA3 (10:26)
[2023-06-24] MEDS ORDERED: AMIL5TAB4 (10:26)
[2023-06-24] MEDS ORDERED: BUPR1TAB56 PO (10:26)
[2023-06-24] MEDS ORDERED: GLYB2.5T7 PO (10:26)
[2023-06-24 13:16] VITALS: TEMP 97; O2SAT 99
[2023-06-24] MEDS ORDERED: NS 1,000 ML IV ONE ×2 (13:45→16:25)
[2023-06-24] MEDS ORDERED: PROMETHAZINE 25MG/ML 1ML VIAL IV ONE (13:45)
[2023-06-24 14:36] VITALS: BP 110/72
[2023-06-24 14:48] LABS: BASO # 0.1 10^3/uL (0.0-0.2); BASO % 0.7 % (0.0-1.0); EOS # 0.2 10^3/uL (0.0-0.5); EOS % 1.6 % (0.0-3.0); HEMATOCRIT 45.1 % (36.0-47.0); HEMOGLOBIN 15.1 g/dl (12.0-15.5); LYMPH % 40.5 % (24.0-44.0); MEAN CORPUSCULAR HEMOGLOBIN 30.3 pg (27.0-33.0); MEAN CORPUSCULAR HGB CONC 33.5 g/dl (32.0-36.5); MEAN CORPUSCULAR VOLUME 90.6 fl (80.0-96.0); MONO # 0.7 10^3/uL (0.0-0.8); MONO % 7.1 % (2.0-8.0); NEUTROPHILS # 4.9 10^3/uL (1.5-8.5); NEUTROPHILS % 49.8 % (36.0-66.0); PLATELET COUNT, AUTOMATED 465 10^3/uL (150-450); RED BLOOD COUNT 4.98 10^6/uL (4.00-5.40); WHITE BLOOD COUNT 9.8 10^3/uL (4.0-10.0)
[2023-06-24 15:17] LABS: LIPASE 44 U/L (12-53)
[2023-06-24 15:19] LABS: ALBUMIN 3.9 G/DL (3.2-5.2); ALKALINE PHOSPHATASE 59 U/L (46-116); ALT/SGPT 18 U/L (7.0-40); AST/SGOT 12 U/L (<34); BILIRUBIN,TOTAL 0.4 MG/DL (0.3-1.2); BLOOD UREA NITROGEN 15 MG/DL (9-23); CALCIUM LEVEL 9.6 MG/DL (8.5-10.1); CARBON DIOXIDE LEVEL 23 MMOL/L (20-31); CHLORIDE LEVEL 110 MMOL/L (98-107); CREATININE FOR GFR 0.94 MG/DL (0.55-1.30); GLOMERULAR FILTRATION RATE > 60.0 (>60); GLUCOSE, FASTING 69 MG/DL (60-100); POTASSIUM SERUM 4.3 MMOL/L (3.5-5.1); SODIUM LEVEL 144 MMOL/L (136-145); TOTAL PROTEIN 7.5 G/DL (5.7-8.2)
[2023-06-24 15:21] LABS: THYROID STIMULATING HORMONE 1.411 uIU/ML (0.55-4.78); THYROXINE (T4) 9.4 UG/DL (4.5-10.9)
[2023-06-24 15:23] LABS: FREE THYROXINE INDEX 2.8 % (1.3-4.8); T UPTAKE 29.7 % (22.5-37.0)
[2023-06-24 15:48] LABS: HCG, SERUM QUANTITATIVE 8.1 MIU/ML (<4.2)
[2023-06-24] MEDS ORDERED: PROM25TA12 PO (17:48)
== END 2023-06-24 18:05 | disposition home or self-care (01) ==
LOC: M ED 10:04
DX: R42 Dizziness and giddiness (principal); R11.0 Nausea; H53.9 Unspecified visual disturbance; E11.9 Type 2 diabetes mellitus without complications; R51.9 Headache, unspecified; Z88.0 Allergy status to penicillin; Z91.040 Latex allergy status; Z79.83 Long term (current) use of bisphosphonates; Z79.52 Long term (current) use of systemic steroids; Z79.818 Long term (current) use of other agents affecting estrogen receptors and estrogen levels; Z79.899 Other long term (current) drug therapy
CPT/HCPCS: 70450; 80047; 80053; 83690; 84436; 84443; 84479; 84702; 85025; 87486; 87581; 87633; 87798; 96361; 96374; 99284; J2550

== ENCOUNTER 2023-07-24 07:41 | Outpatient (CLI) | payer OTHER ==
[~2023-07-24] VITALS: Ht 160 cm; Wt 84.8 kg
[~2023-07-24 07:41] MED LIST changes: +AMIL5TAB4; +BUPR1TAB56 PO; +GLYB2.5T7 PO; +PROM25TA12 PO; +TORS10TA3
[2023-07-24 08:00] VITALS: BP 123/81; O2SAT 99
[2023-07-24] MEDS ORDERED: COSYNTROPIN 0.25 MG/ML 1ML VIAL IV ONE (08:00)
[2023-07-24] MEDS ORDERED: METF10004 PO (08:36)
[2023-07-24] MEDS ORDERED: JANU100T PO (08:37)
[2023-07-24 09:35] VITALS: BP 133/88; O2SAT 99
== END 2023-07-24 09:35 | disposition home or self-care (01) ==
LOC: M INFU 07:41
PROVIDERS: ATTEND Internal Medicine Endocrinology, Diabetes & Metabolism
DX: E27.40 Unspecified adrenocortical insufficiency (principal); Z88.0 Allergy status to penicillin
CPT/HCPCS: 36592; 82533; 96374; J0834

== ENCOUNTER → 2023-09-09 | Outpatient (REF) | payer OTHER ==
[~2023-09-09] MED LIST changes: +JANU100T PO; +METF10004 PO
== END ==
LOC: M LAB REF 17:54
PROVIDERS: ATTEND Physician Assistant
DX: N30.01 Acute cystitis with hematuria (principal)

== ENCOUNTER → 2023-10-16 | Outpatient (REF) | payer OTHER ==
[2023-10-16 21:57] LABS: Trichomonas vaginalis (AMP) NOT DETECTED (NEGATIVE)
[2023-10-16 22:21] LABS: GC DNA AMPLIFICATION NEGATIVE (NEGATIVE)
== END ==
LOC: M LAB REF 20:16
PROVIDERS: ATTEND Physician Assistant
DX: R30.0 Dysuria (principal)

== ENCOUNTER 2023-11-02 14:34 | Emergency (ER) | payer OTHER ==
[~2023-11-02] VITALS: Ht 160 cm; Wt 79.1 kg
[2023-11-02 15:06] LABS: VENOUS BASE EXCESS -3.7 (-2.0-2.0); VENOUS HCO3 22.1 MMOL/L (23.0-27.0); VENOUS O2 SATURATION 58.2 % (60.0-80.0); VENOUS PARTIAL PRESSURE CO2 42.3 mmHg (38.0-50.0); VENOUS PARTIAL PRESSURE O2 30.5 mmHg (30.0-50.0); VENOUS PH 7.335 UNITS (7.330-7.430); VENOUS STANDARD HCO3 20.5 MMOL/L; VENOUS TOTAL CO2 23.4 MMOL/L (24.0-28.0)
[2023-11-02 15:11] LABS: BASO # 0.1 10^3/uL (0.0-0.2); BASO % 0.4 % (0.0-1.0); EOS # 0.1 10^3/uL (0.0-0.5); EOS % 0.5 % (0.0-3.0); HEMATOCRIT 44.6 % (36.0-47.0); HEMOGLOBIN 14.8 g/dl (12.0-15.5); MEAN CORPUSCULAR HEMOGLOBIN 30.3 pg (27.0-33.0); MEAN CORPUSCULAR HGB CONC 33.2 g/dl (32.0-36.5); MEAN CORPUSCULAR VOLUME 91.2 fl (80.0-96.0); MONO # 0.8 10^3/uL (0.0-0.8); MONO % 3.6 % (2.0-8.0); NEUTROPHILS # 18.8 10^3/uL (1.5-8.5); NEUTROPHILS % 85.5 % (36.0-66.0); PLATELET COUNT, AUTOMATED 442 10^3/uL (150-450); RED BLOOD COUNT 4.89 10^6/uL (4.00-5.40)
[2023-11-02] MEDS ORDERED: DOXY100C82 PO (15:41)
[2023-11-02] MEDS: NS 1,000 ML IV ONE ×2 (15:41→18:10)
[2023-11-02 15:42] LABS: ALBUMIN 3.8 G/DL (3.2-5.2); BILIRUBIN,DIRECT 0.1 MG/DL (<0.4); BILIRUBIN,TOTAL 0.3 MG/DL (0.3-1.2); CALCIUM LEVEL 9.6 MG/DL (8.5-10.1); CREATININE FOR GFR 1.39 MG/DL (0.55-1.30); GLOMERULAR FILTRATION RATE 45.2 (>60); POTASSIUM SERUM 3.9 MMOL/L (3.5-5.1); TOTAL PROTEIN 7.3 G/DL (5.7-8.2)
[2023-11-02] MEDS ORDERED: ISOVUE-370 76% 100ML VIAL As Ordered ONE (16:10)
[2023-11-02] MEDS: METOCLOPRAMIDE INJ 10MG/2ML VIAL IV ONE (18:10)
[2023-11-02 18:15] VITALS: BP 96/55
[2023-11-02] MEDS ORDERED: REGL5TAB2 PO (18:17)
[2023-11-02 18:19] VITALS: TEMP 97.7; O2SAT 98
== END 2023-11-02 18:41 | disposition home or self-care (01) ==
LOC: M ED 14:34 → EDBD 14:34 → M ED 18:41
DX: E86.0 Dehydration (principal); R11.10 Vomiting, unspecified; I45.81 Long QT syndrome; I10 Essential (primary) hypertension; E11.9 Type 2 diabetes mellitus without complications; Z88.0 Allergy status to penicillin; Z91.040 Latex allergy status; Z79.4 Long term (current) use of insulin; Z79.83 Long term (current) use of bisphosphonates; Z79.899 Other long term (current) drug therapy
CPT/HCPCS: 74177; 80048; 80076; 82803; 83690; 85025; 93005; 93041; 96361; 96374; 99285; J2765; Q9967

== ENCOUNTER → 2024-03-12 | Outpatient (CLI) | payer OTHER ==
[~2024-03-12] MED LIST changes: +DOXY100C82 PO; +FLUO-365 PO; -FLUO20CA22 PO; +ONDA-282 PO; -ONDA4TAB6 PO; +ROSU5TAB40; -ROSU5TAB5
== END ==
LOC: M EKG 14:51
PROVIDERS: ATTEND Internal Medicine Cardiovascular Disease
DX: R00.2 Palpitations (principal); R00.0 Tachycardia, unspecified

== ENCOUNTER 2024-03-25 05:48 | Emergency (ER) | payer OTHER ==
[~2024-03-25] VITALS: Ht 157.5 cm; Wt 86.4 kg
[2024-03-25] MEDS ORDERED: ISOVUE-370 76% 100ML VIAL As Ordered ONE (06:48)
[2024-03-25] MEDS: NS 1,000 ML IV ONE (06:49)
[2024-03-25] MEDS: ONDANSETRON 4MG 2ML VIAL IV ONE (06:49)
[2024-03-25] MEDS: MORPHINE 4 MG/ML 1ML VIAL IV ONE (06:49)
[2024-03-25 06:52] LABS: BASO # 0.1 10^3/uL (0.0-0.2); BASO % 0.5 % (0.0-1.0); EOS # 0.1 10^3/uL (0.0-0.5); EOS % 0.8 % (0.0-3.0); HEMATOCRIT 44.9 % (36.0-47.0); HEMOGLOBIN 14.7 g/dl (12.0-15.5); LYMPH # 2.3 10^3/uL (1.5-5.0); LYMPH % 13.6 % (24.0-44.0); MEAN CORPUSCULAR HEMOGLOBIN 30.1 pg (27.0-33.0); MEAN CORPUSCULAR HGB CONC 32.7 g/dl (32.0-36.5); MEAN CORPUSCULAR VOLUME 91.8 fl (80.0-96.0); MONO # 0.8 10^3/uL (0.0-0.8); MONO % 4.7 % (2.0-8.0); NEUTROPHILS # 13.3 10^3/uL (1.5-8.5); NEUTROPHILS % 79.9 % (36.0-66.0); PLATELET COUNT, AUTOMATED 453 10^3/uL (150-450); RED BLOOD COUNT 4.89 10^6/uL (4.00-5.40); WHITE BLOOD COUNT 16.6 10^3/uL (4.0-10.0)
[2024-03-25 07:15] LABS: LIPASE 50 U/L (12-53)
[2024-03-25 07:17] LABS: ALBUMIN 3.8 G/DL (3.2-5.2); ALKALINE PHOSPHATASE 83 U/L (46-116); ALT/SGPT 21 U/L (7.0-40); AST/SGOT 9 U/L (<34); BILIRUBIN,DIRECT < 0.1 MG/DL (<0.4); BILIRUBIN,TOTAL 0.3 MG/DL (0.3-1.2); BLOOD UREA NITROGEN 15 MG/DL (9-23); CARBON DIOXIDE LEVEL 23 MMOL/L (20-31); CHLORIDE LEVEL 105 MMOL/L (98-107); CREATININE FOR GFR 0.79 MG/DL (0.55-1.30); GLOMERULAR FILTRATION RATE > 60.0 (>60); GLUCOSE, FASTING 252 MG/DL (60-100); POTASSIUM SERUM 4.3 MMOL/L (3.5-5.1); SODIUM LEVEL 134 MMOL/L (136-145); TOTAL PROTEIN 7.2 G/DL (5.7-8.2)
[2024-03-25 07:19] LABS: HCG, SERUM QUALITATIVE NEGATIVE (NEGATIVE)
[2024-03-25] MEDS: CIPROFLOXACIN 400 MG in IV 1 EA IV ONE (08:55)
[2024-03-25 10:33] VITALS: BP 103/62; TEMP 97.5; O2SAT 97
[2024-03-25] MEDS ORDERED: PHENAZOPYRIDINE 100 MG TAB PO ONE (12:15)
[2024-03-25] MEDS ORDERED: CIPR-249 PO (12:16)
[2024-03-25] MEDS ORDERED: PYRI1TAB5 PO (12:16)
[2024-03-25] MEDS: PHENAZOPYRIDINE 100 MG TAB PO ONE (12:39)
== END 2024-03-25 12:48 | disposition home or self-care (01) ==
LOC: M ED 05:48
DX: N30.01 Acute cystitis with hematuria (principal); K76.0 Fatty (change of) liver, not elsewhere classified; E11.9 Type 2 diabetes mellitus without complications; F41.9 Anxiety disorder, unspecified; F32.A Depression, unspecified; Z79.84 Long term (current) use of oral hypoglycemic drugs; Z79.2 Long term (current) use of antibiotics; Z79.83 Long term (current) use of bisphosphonates; Z79.899 Other long term (current) drug therapy
CPT/HCPCS: 74177; 80047; 80048; 80076; 81000; 81015; 83605; 83690; 84703; 85025; 87088; 87186; 88108; 93041; 96361; 96365; 96375; 99284; J0744; J2405; Q9967

== ENCOUNTER → 2024-07-11 | Outpatient (CLI) | payer OTHER ==
[~2024-07-11] MED LIST changes: -ROSU5TAB40; +ROSU5TAB49
== END ==
LOC: M CARPUL 14:35
PROVIDERS: ATTEND Internal Medicine Cardiovascular Disease
DX: R06.02 Shortness of breath (principal); R11.0 Nausea

== ENCOUNTER → 2024-08-28 | Outpatient (CLI) | payer OTHER | LOC: M RAD 07-16 07:10 | PROVIDERS: ATTEND Nurse Practitioner Family | DX: R11.2 Nausea with vomiting, unspecified (principal); K31.84 Gastroparesis; K59.09 Other constipation; E56.9 Vitamin deficiency, unspecified; R10.13 Epigastric pain | CPT/HCPCS: 78227; A9537 ==

== ENCOUNTER 2024-09-14 18:42 | Emergency (ER) | payer OTHER ==
[~2024-09-14] VITALS: Ht 165.1 cm; Wt 86.6 kg
[2024-09-14 18:45] VITALS: TEMP 98.1
[2024-09-14 19:26] LABS: BASO # 0.1 10^3/uL (0.0-0.2); BASO % 0.6 % (0.0-1.0); EOS # 0.2 10^3/uL (0.0-0.5); EOS % 1.6 % (0.0-3.0); HEMATOCRIT 42.9 % (36.0-47.0); HEMOGLOBIN 14.5 g/dl (12.0-15.5); LYMPH # 2.9 10^3/uL (1.5-5.0); LYMPH % 26.2 % (24.0-44.0); MEAN CORPUSCULAR HEMOGLOBIN 30.7 pg (27.0-33.0); MEAN CORPUSCULAR HGB CONC 33.8 g/dl (32.0-36.5); MEAN CORPUSCULAR VOLUME 90.9 fl (80.0-96.0); MONO # 0.7 10^3/uL (0.0-0.8); MONO % 6.4 % (2.0-8.0); NEUTROPHILS # 7.2 10^3/uL (1.5-8.5); NEUTROPHILS % 64.9 % (36.0-66.0); PLATELET COUNT, AUTOMATED 366 10^3/uL (150-450); RED BLOOD COUNT 4.72 10^6/uL (4.00-5.40); WHITE BLOOD COUNT 11.1 10^3/uL (4.0-10.0)
[2024-09-14 19:57] LABS: ETHYL ALCOHOL (ETHANOL) < 0.003 % (0.000-0.010)
[2024-09-14 19:59] LABS: BLOOD UREA NITROGEN 17 MG/DL (9-23); CALCIUM LEVEL 9.3 MG/DL (8.5-10.1); CARBON DIOXIDE LEVEL 20 MMOL/L (20-31); CHLORIDE LEVEL 106 MMOL/L (98-107); CREATININE FOR GFR 1.22 MG/DL (0.55-1.30); GLOMERULAR FILTRATION RATE 52.5 (>60); GLUCOSE, FASTING 77 MG/DL (60-100); MAGNESIUM LEVEL 2.3 MG/DL (1.8-2.4); POTASSIUM SERUM 3.9 MMOL/L (3.5-5.1); SODIUM LEVEL 142 MMOL/L (136-145)
[2024-09-14 20:02] LABS: THYROID STIMULATING HORMONE 1.699 uIU/ML (0.55-4.78)
[2024-09-14 20:13] LABS: HCG, SERUM QUALITATIVE NEGATIVE (NEGATIVE)
[2024-09-14] MEDS: ONDANSETRON 4MG 2ML VIAL IV ONE (20:26)
[2024-09-14 20:41] LABS: ALBUMIN 3.9 G/DL (3.2-5.2); ALKALINE PHOSPHATASE 60 U/L (35-104); ALT/SGPT 21 U/L (7.0-40); AST/SGOT 10 U/L (<34); BILIRUBIN,DIRECT < 0.1 MG/DL (<0.4); BILIRUBIN,TOTAL 0.3 MG/DL (0.3-1.2); TOTAL PROTEIN 7.3 G/DL (5.7-8.2)
[2024-09-14 21:59] LABS: KETONE, URINE AUTO RFX TRACE mg/dL (NEGATIVE); LEUKOCYTE ESTERASE UR AUTO RFX NEGATIVE (NEGATIVE); NITRITE, URINE AUTO RFX NEGATIVE (NEGATIVE); RBC, URINE AUTO RFX 0 /HPF (0-3); SQUAM EPITHELIAL CELL UR AURFX 0 /HPF (0-6); WBC, URINE AUTO RFX 0 /HPF (0-3)
[2024-09-14] MEDS: NS (Normal Saline) 0.9% 1,000 ML IV ONE (22:01)
[2024-09-14 22:18] LABS: AMPHETAMINES LEVEL URINE NEGATIVE (NEGATIVE)
[2024-09-14 22:19] LABS: BARBITURATES URINE NEGATIVE (NEGATIVE); BENZODIAZEPINES URINE NEGATIVE (NEGATIVE); CANNABINOIDS URINE NEGATIVE (NEGATIVE); COCAINE METABOLITE URINE NEGATIVE (NEGATIVE); METHADONE URINE NEGATIVE (NEGATIVE); OPIATES URINE NEGATIVE (NEGATIVE); PHENCYCLIDINE URINE NEGATIVE (NEGATIVE)
[2024-09-14] MEDS: KETOROLAC 30 MG/ML 1ML VIAL IV ONE (22:27)
[2024-09-14 23:00] VITALS: BP 120/75
[2024-09-14 23:27] VITALS: O2SAT 98
== END 2024-09-14 23:31 | disposition home or self-care (01) ==
LOC: M ED 18:42
DX: R55 Syncope and collapse (principal); K82.8 Other specified diseases of gallbladder; R00.0 Tachycardia, unspecified; E11.9 Type 2 diabetes mellitus without complications; F32.A Depression, unspecified; F41.9 Anxiety disorder, unspecified; Z88.0 Allergy status to penicillin; Z91.040 Latex allergy status; Z79.4 Long term (current) use of insulin; Z79.83 Long term (current) use of bisphosphonates; Z79.899 Other long term (current) drug therapy; Z79.2 Long term (current) use of antibiotics
CPT/HCPCS: 71045; 76705; 80048; 80076; 80307; 81001; 82077; 83605; 83735; 84443; 84703; 85025; 93005; 93041; 94760; 96361; 96374; 96375; 99285; J1885; J2405

== ENCOUNTER 2024-09-23 06:08 | Day surgery (SDC) | payer OTHER ==
[~2024-09-23] VITALS: Ht 160 cm; Wt 86.6 kg
[~2024-09-23 06:08] MED LIST changes: +AMIT24CA7 PO
[2024-09-23] MEDS ORDERED: propofoL 200 MG/20 ML VIAL As Ordered ONE (06:24)
[2024-09-23] MEDS ORDERED: SUGAMMADEX SODIUM 500 MG/5 ML VIAL (BRIDION) As Ordered ONE (06:25)
[2024-09-23] MEDS ORDERED: ONDANSETRON 4MG 2ML VIAL As Ordered ONE (06:25)
[2024-09-23] MEDS ORDERED: LIDOCAINE 2% 100MG/5ML SDV (FOR ANES.) As Ordered ONE (06:25)
[2024-09-23] MEDS ORDERED: ROCURONIUM BROMIDE 50MG/5ML VIAL As Ordered ONE (06:25)
[2024-09-23] MEDS ORDERED: NS (Normal Saline) 0.9% 1,000 ML IV SCH ×2 (06:25→08:40)
[2024-09-23] MEDS ORDERED: KETOROLAC 60MG 2ML VIAL As Ordered ONE (06:25)
[2024-09-23] MEDS ORDERED: METOCLOPRAMIDE INJ 10MG/2ML VIAL As Ordered ONE (06:26)
[2024-09-23] MEDS ORDERED: GLYCOPYRROLATE INJ 0.2 MG/ML 2 ML VIAL As Ordered ONE (06:26)
[2024-09-23] MEDS ORDERED: MIDAZOLAM INJ 2MG/2ML VIAL As Ordered ONE (06:28)
[2024-09-23] MEDS ORDERED: fentaNYL 100 MCG/2 ML INJECTION As Ordered ONE (06:28)
[2024-09-23] MEDS ORDERED: ACETAMINOPHEN 1000MG/100ML IV BAG As Ordered ONE (06:46)
[2024-09-23] MEDS: INDOCYANINE GREEN 25MG VIAL (IC-GREEN) IV ONE (07:20)
[2024-09-23] MEDS: ceFAZolin SOD 2 GM in IV 1 EA IV ONE (07:42)
[2024-09-23] MEDS: HEPARIN SOD (PORCINE) 5000UNITS/ML 1ML VIAL/SYRINGE SQ ONE (07:45)
[2024-09-23] MEDS ORDERED: dexmedeTOMIDine (4MCG/ML)200MCG/50ML BTL (PRECEDEX) As Ordered ONE (08:02)
[2024-09-23] MEDS: LR 1,000 ML IV SCH (08:02)
[2024-09-23] MEDS ORDERED: MORPHINE 10 MG/ML 1ML VIAL As Ordered ONE (08:16)
[2024-09-23] MEDS ORDERED: fentaNYL 100 MCG/2 ML INJECTION IV PRN (08:40)
[2024-09-23] MEDS ORDERED: HYDROMORPHONE HCL 0.5 MG/ 0.5 ML SYRINGE IV PRN (08:40)
[2024-09-23] MEDS: INSULIN LISPRO (NovoLOG) PER UNIT SC PRN ×3 (08:49→10:20)
[2024-09-23] MEDS: oxyCODONE 5MG TAB PO PRN (10:37)
[2024-09-23] MEDS: ONDANSETRON 4MG 2ML VIAL IV PRN (11:21)
[2024-09-23 12:00] VITALS: BP 107/66; TEMP 96.8; O2SAT 97
== END 2024-09-23 12:05 | disposition home or self-care (01) ==
LOC: M SDC 06:08
PROVIDERS: ATTEND Surgery
DX: K82.8 Other specified diseases of gallbladder (principal); E11.9 Type 2 diabetes mellitus without complications; K21.9 Gastro-esophageal reflux disease without esophagitis; F41.9 Anxiety disorder, unspecified; F32.A Depression, unspecified; Z79.84 Long term (current) use of oral hypoglycemic drugs; Z79.899 Other long term (current) drug therapy; Z88.0 Allergy status to penicillin; Z91.040 Latex allergy status
CPT/HCPCS: 47562; 88304; J0131; J0665; J0690; J1100; J1596; J1815; J1885; J2250; J2405; J2765; J3010; Q9968; S2900

== ENCOUNTER → 2025-07-22 | Outpatient (CLI) | payer OTHER ==
[~2025-07-22] MED LIST changes: -AMIT24CA7 PO; -BUPR1TAB56 PO; +BUPR200T45 PO; +DOXY-442 PO; -DOXY100C82 PO; +LUBI24CA32 PO; +TOPI-256; -TOPI25TA10
== END ==
LOC: M EKG 16:02
PROVIDERS: ATTEND Nurse Practitioner Family
DX: R00.2 Palpitations (principal)